=== PATIENT | female | born 1970 | race Hispanic/Latino ===

== ENCOUNTER 2017-08-05 09:11 | Emergency (ER) | payer BC ==
[2017-08-05] MEDS ORDERED: Sodium Chloride 0.9% 1,000 ML IV STA (10:14)
--- NOTE | 2017-08-05 10:15 | ED PDOC ---
Arrival/HPI - General Chief Complaint: Flu-like Symptoms Time Seen by Provider: 08/05/17 10:13 Historian: Patient - History of Present Illness Narrative History of Present Illness (Text): 08/05/17 10:15 Patient is a 47 year old female who presents to the emergency department complaining of diarrhea and associated nausea and vomiting, which started last night. Patient reports that her diarrhea started last night and her associated symptoms started earlier today. Patient woke up this morning with sinus headache, body aches and experienced non-bloody non-bilious vomiting. Patient denies any recent travel or sick contact. Patient admits to experiencing rhinorrhea but denies fevers, chills, dizziness, chest pain, shortness of breath , dyspnea on exertion, cough, abdominal pain, or any other complaint. Time/Duration: 24 hours Symptom Onset: Sudden Symptom Course: Worsening Context: Home Past Medical History - Provider Review Nursing Documentation Reviewed: Yes - Cardiac Hx Cardiac Disorders: No - Pulmonary Hx Respiratory Disorders: No - Neurological Hx Neurological Disorder: No - HEENT Hx HEENT Disorder: No - Renal Hx Renal Disorder: No - Endocrine/Metabolic Hx Endocrine Disorders: No - Hematological/Oncological Hx Blood Disorders: Yes Hx Anemia: Yes - Integumentary Hx Dermatological Disorder: No - Musculoskeletal/Rheumatological Hx Musculoskeletal Disorders: No - Gastrointestinal Hx Gastrointestinal Disorders: Yes Hx Gastroesophageal Reflux: Yes - Genitourinary/Gynecological Hx Genitourinary Disorders: Yes Other/Comment: DYSMENORRHEA - Psychiatric Hx Psychophysiologic Disorder: Yes Hx Depression: Yes Hx Substance Use: No - Surgical History Hx Tonsillectomy: Yes Other/Comment: UTERINE ABLATION Family/Social History - Physician Review Nursing Documentation Reviewed: Yes Family/Social History: No Known Family HX Smoking Status: Never Smoked Hx Alcohol Use: Yes Frequency of alcohol use: Socially Hx Substance Use: No Allergies/Home Meds Allergies/Adverse Reactions: Allergies No Known Allergies Allergy (Verified 08/05/17 09:26) Home Medications: Home Meds Medication Instructions Recorded Confirmed Citalopram [celeXA] 10 mg PO DAILY 08/05/17 08/05/17 Famotidine [Pepcid] 20 mg PO DAILY 08/05/17 08/05/17 Review of Systems - Physician Review All systems were reviewed & negative as marked: Yes - Review of Systems Constitutional: absent: Fevers Cardiovascular: absent: Chest Pain Physical Exam - Physical Exam Narrative Physical Exam (Text): 08/05/17 10:42 Constitutional: No acute distress. Head: Normocephalic. Atraumatic. Eyes: PERRL. ENT: Moist mucous membranes. Neck: Supple. Cardiovascular: Regular rate. Chest: No tenderness. Respiratory: Clear to auscultation bilaterally. GI: Soft. Nontender. Nondistended. Back: No CVA tenderness. Musculoskeletal: No tenderness or swelling of extremities. Skin: No rash. Neurologic: Alert, no focal deficit. Vital Signs Reviewed: Yes Vital Signs Temp Pulse Resp BP Pulse Ox 08/05/17 11:45 100 F H 93 H 18 155/84 H 95 08/05/17 09:27 99.4 F 93 H 16 125/85 96 Temperature: Afebrile Blood Pressure: Normal Pulse: Regular Respiratory Rate: Normal Appearance: Positive for: Well-Appearing Mental Status: Positive for: Alert and Oriented X 3 Medical Decision Making ED Course and Treatment: 08/05/17 10:43 Impression: Patient is a 47 year old female complaining of nausea, vomiting, and diarrhea. Plan: --labs --Zofran --IV fluids --Urinalysis -- Reassess and disposition Progress Notes: 08/05/17 12:08 Reevaluation: On reevaluation the patient feels better, is in no acute distress. PO challenged. I have discussed the results and plan with the patient, who expresses understanding. Patient given the opportunity to ask question, all questions were answered and there is agreement with the plan to discharge the patient home with prescription for Zofran. Patient is stable for discharge. Patient was instructed to follow up with physician/clinic in 1-2 days or return if symptoms persist/worsen or new concerning symptoms arise. - Lab Interpretations Lab Results: 08/05/17 10:40 08/05/17 10:40 Lab Results 08/05/17 10:40: Sodium 139, Potassium 4.4, Chloride 98, Carbon Dioxide 31, Anion Gap 14, BUN 16, Creatinine 0.9, Est GFR ( Amer) > 60, Est GFR (Non- Af Amer) > 60, Random Glucose 96, Calcium 9.2, Total Bilirubin 0.4, AST 34, ALT 48, Alkaline Phosphatase 66, Total Protein 7.2, Albumin 4.2, Globulin 2.9, Albumin/Globulin Ratio 1.4, Lipase 139 08/05/17 10:40: Urine Color Yellow, Urine Appearance Clear, Urine pH 6.0, Ur Specific [place] 1.025, Urine Protein Negative, Urine Glucose (UA) Negative, Urine Ketones Negative, Urine Blood Small H, Urine Nitrate Negative, Urine Bilirubin Negative, Urine Urobilinogen 0.2, Ur Leukocyte Esterase Negative, Urine RBC 5 - 10, Urine WBC 0 - 2, Ur Epithelial Cells 4 - 5, Urine Bacteria Few , Urine HCG, Qual Negative 08/05/17 10:40: WBC 15.8 H, RBC 5.22, Hgb 15.6, Hct 47.6, MCV 91.2, MCH 29.9, MCHC 32.8, RDW 14.7 H, Plt Count 198, MPV 9.7, Gran % 87.8 H, Lymph % (Auto) 4.4 L, [place] % (Auto) 7.6 H, Eos % (Auto) 0.1 L, Baso % (Auto) 0.1, Gran # 13.85 H, Lymph # (Auto) 0.7 L, [place] # (Auto) 1.2 H, Eos # (Auto) 0.0, Baso # (Auto) 0.01, Neutrophils % (Manual) 93 H, Band Neutrophils % 2, Lymphocytes % (Manual) 3 L, Monocytes % (Manual) 2, Platelet Evaluation Normal I have reviewed the lab results: Yes - Medication Orders Current Medication Orders: Discontinued Medications Sodium Chloride (Sodium Chloride 0.9%) 1,000 mls @ 999 mls/hr IV .Q1H1M STA Stop: 08/05/17 11:14 Last Admin: 08/05/17 10:30 Dose: 999 mls/hr eMAR Start Stop Document 08/05/17 10:30 LA (Rec: 08/05/17 10:30 [email or web address] [id number]) Intravenous Solution Start Date 08/05/17 Start Time 10:30 End Date 08/05/17 End time 11:31 Total Infusion Time 61 Ondansetron HCl (Zofran Inj) 8 mg IVP STAT STA Stop: 08/05/17 10:15 Last Admin: 08/05/17 10:30 Dose: 8 mg IVP Administration Document 08/05/17 10:30 LA (Rec: 08/05/17 10:30 LA [id number]) Charges for Administration # of IVP Administrations 1 - Scribe Statement The provider has reviewed the documentation as recorded by the Scribe Juan Ramon Barfield Provider Scribe Attestation: All medical record entries made by the Scribe were at my direction and personally dictated by me. I have reviewed the chart and agree that the record accurately reflects my personal performance of the history, physical exam, medical decision making, and the department course for this patient. I have also personally directed, reviewed, and agree with the discharge instructions and disposition. Disposition/Present on Arrival - Present on Arrival Any Indicators Present on Arrival: No History of DVT/PE: No History of Uncontrolled Diabetes: No Urinary Catheter: No History of Decub. Ulcer: No History Surgical Site Infection Following: None - Disposition Have Diagnosis and Disposition been Completed?: Yes Diagnosis: Vomiting and diarrhea Disposition: HOME/ ROUTINE Disposition Time: 11:50 Patient Plan: Discharge Patient Problems: Current Active Problems Problem Status Onset Vomiting and diarrhea Acute Condition: STABLE Discharge Instructions (ExitCare): Viral Syndrome (DC) Prescriptions: Guaifenesin [Mucinex] 1,200 mg PO Q12H #18 ter Ondansetron ODT [Zofran ODT] 4 mg PO Q8 #12 odt Forms: Pheed (Monegasque)
[2017-08-05 10:49] LABS: BASO # 0.01 K/mm3 (0.0-2.0); BASO % 0.1 % (0.0-3.0); EOS % 0.1 % (1.5-5.0); GRAN # 13.85 (1.4-6.5); GRAN % 87.8 % (50.0-68.0); HEMOGLOBIN 15.6 g/dL (12.0-16.0); LYMPH # 0.7 (1.2-3.4); LYMPH % 4.4 % (22.0-35.0); MEAN CELL VOLUME 91.2 fl (80.0-105.0); MEAN CORPUSCULAR HEMOGLOBIN 29.9 pg (25.0-35.0); MEAN CORPUSCULAR HGB CONC 32.8 g/dl (31.0-37.0); MEAN PLATELET VOLUME 9.7 fl (7.0-11.0); MONO # 1.2 (0.1-0.6); MONO % 7.6 % (1.0-6.0); PLATELET COUNT 198 10^3/uL (120.0-450.0); RBC 5.22 10^6/uL (3.5-6.1); RED CELL DISTRIBUTION WIDTH 14.7 % (11.5-14.5); WHITE BLOOD COUNT 15.8 10^3/ul (4.5-11.0)
[2017-08-05 10:55] LABS: ALB/GLOB RATIO 1.4 (1.1-1.8); ALBUMIN 4.2 g/dL (3.0-4.8); ALT/SGPT 48 U/L (7-56); AST/SGOT 34 U/L (14-36); BLOOD UREA NITROGEN 16 mg/dL (7-21); CALCIUM 9.2 mg/dL (8.4-10.5); GFR AFRICAN-AMERICAN > 60; GFR NON-AFRICAN AMERICAN > 60; LIPASE 139 U/L (23-300)
[2017-08-05 11:07] LABS: URINE BILIRUBIN NEGATIVE (NEGATIVE); URINE BLOOD SMALL (NEGATIVE); URINE GLUCOSE (UA) NEGATIVE (NEGATIVE); URINE LEUKOCYTE ESTERASE NEGATIVE Leu/uL (NEGATIVE); URINE PROTEIN NEGATIVE mg/dL (<30 mg/dL); URINE UROBILINOGEN 0.2 E.U./dL (<1 E.U./dL)
[2017-08-05 11:18] LABS: URINE APPEARANCE CLEAR (CLEAR); URINE COLOR YELLOW (YELLOW)
[2017-08-05 11:19] LABS: HCG,QUALITATIVE URINE NEGATIVE (NEGATIVE); URINE BACTERIA FEW (NEG); URINE WBC 0 - 2 /hpf (0-6)
[2017-08-05 11:22] LABS: BAND 2 % (0-2); LYMPHOCYTE 3 % (22.0-35.0); MONOCYTE 2 % (1.0-6.0); NEUTROPHIL 93 % (50.0-70.0)
[2017-08-05 11:23] LABS: PLATELET ESTIMATE NORMAL (NORMAL)
[2017-08-05 11:46] VITALS: RESP 18
[2017-08-05 13:52] VITALS: TEMP 99
[2017-08-05 13:53] VITALS: BP 150/79; PULSE 89; O2SAT 99
== END 2017-08-05 13:52 | disposition home or self-care (01) ==
LOC: ED 09:11
DX: R19.7 Diarrhea, unspecified (principal); R11.10 Vomiting, unspecified
CPT/HCPCS: 80053; 81001; 83690; 84703; 85025; 96361; 96374; 99284; J2405; J7030

== ENCOUNTER 2018-06-10 14:40 | Outpatient (CLI) | payer BC | END 2018-06-10 14:41 | disposition home or self-care (01) | LOC: RAD 14:40 ==